=== PATIENT | female | born 1950 | race Caucasian/White ===

== ENCOUNTER → 2016-10-29 | Outpatient (CLI) | payer MEDICARE, MEDICAID ==
[~2016-10-29] MED LIST: ACET-1742; ACET600C5 PO; ACHD5005 PO; ADV1DS; ALBU8.5H2 IH; AML5T PO; AMLO5TAB2 PO; ASCO10006 PO; ASPI-892 PO; AZIT250T81 PO; BUDE6HFA IH; C250T PO; CYCL5TAB11 PO; DOCU100C37 PO; E400C; ENAL20TA PO; ESCI20TA45 PO; ESCT10T PO; FLUT12AE4 IH; FLUT1DIS26; FRS325T; GFN600TCR PO; GLMP4T; GUAI-509 PO; HYDR-2890 PO; HYDR-3820 PO; IBUP-15; INSU100V5 SQ; LAXATIVE; LEVO1CAP3 PO; LSRT50T; MELO7.5T PO; METF500T4 PO; MIRA25TA PO; MNTL10T PO; MONT10TA24 PO; MTF500T PO; NITR-65 PO; OLME20TA21 PO; OLME20TA22 PO; PANT40TA3 PO; PNT40TEC PO; PREG75CA PO; ROFL500T3 PO; SANCTURA; SIMV20TA3 PO; SOLI5TAB4 PO; SPRN25T; STOOL SOFTNER; SULF-222 PO; TIOT18CA; TIOT18CA IH; TIOT18CA2 IH; TYLENOL ARTHRITIS; VESICARE 5MG; [UNRECOGNIZED DRUG - OTHER]; [UNRECOGNIZED DRUG - OTHER]; [UNRECOGNIZED DRUG - REMARK]
--- NOTE | 2016-10-29 09:05 | Diagnostic Imaging Report ---
PA and lateral views of the chest. INDICATION: Chronic cough. FINDINGS: The lungs are hyperinflated. There is tiny pleural effusions. The heart size is moderately enlarged. Pulmonary vascular congestion is seen. No effusion or pneumothorax. The mediastinum and curt appear unremarkable. IMPRESSION: Cardiomegaly with pulmonary vascular congestion, and tiny effusions. COPD. Dictated by: Dictated on workstation # [id number]
== END ==
LOC: RAD 08:29
PROVIDERS: ATTEND Family Medicine
DX: J44.9 Chronic obstructive pulmonary disease, unspecified (principal)
CPT/HCPCS: 71020

== ENCOUNTER → 2016-11-05 | Outpatient (CLI) | payer MEDICARE, MEDICAID ==
[2016-11-05 11:57] LABS: ANION GAP 10 MMOL/L (5-14); BLOOD UREA NITROGEN 17 MG/DL (7-18); BUN/CREATININE RATIO 22; CALCIUM 9.4 MG/DL (8.5-10.1); CARBON DIOXIDE 32 MMOL/L (21-32); CHLORIDE 100 MMOL/L (98-107); CREATININE SERUM 0.77 MG/DL (0.60-1.30); GFR ESTIMATED > 60; GLUCOSE 160 MG/DL (70-105); POTASSIUM 4.3 MMOL/L (3.6-5.0); SODIUM 142 MMOL/L (135-145)
--- NOTE | 2016-11-05 19:22 | Diagnostic Imaging Report ---
EXAMINATION: PA and lateral views of the chest. COMPARISON: 10/29/2016. INDICATION: Dyspnea and cough. FINDINGS: There is moderate cardiomegaly with pulmonary vascular congestion. Tiny pleural effusions are seen. There is background pulmonary hyperinflation suggested compatible with COPD. No pneumothorax. The mediastinum and curt appear unremarkable. IMPRESSION: Cardiomegaly, pulmonary vascular congestion, and tiny bilateral effusions. Dictated by: Dictated on workstation # [id number]
== END ==
LOC: RAD 10:45
PROVIDERS: ATTEND Nurse Practitioner Family
DX: R06.09 Other forms of dyspnea (principal)
CPT/HCPCS: 36415; 71020; 80048; 83880

== ENCOUNTER → 2016-11-16 | Outpatient (CLI) | payer MEDICARE, MEDICAID ==
--- NOTE | 2016-11-18 11:34 | ECHOCARDIOGRAPHY REPORT ---
DATE OF SERVICE: 11/16/2016 PRIMARY CARE PHYSICIAN: Dr. Wyman. ORDERING PHYSICIAN: Alexandra CHAVEZ CLINICAL DIAGNOSIS: Shortness of breath. MEASUREMENTS: 1. Left atrium 3.0. 2. Aortic root 2.9. 3. LV diameter, diastolic 5.3. 4. IVS thickness, diastolic 0.8 5. LVPW thickness, diastolic 1.0. DESCRIPTION: This is a technically difficult study. Global left ventricular systolic function appears normal. Left ventricular ejection fraction is estimated to be approximately 60%. Study is not ideal for wall motion analysis. On the views available, no distinct regional wall motion abnormality is seen. Aortic, mitral and tricuspid valves, to the extent seen, seem to have good leaflet excursion. There appears to be mild to moderate aortic valve sclerosis and calcification. Doppler imaging shows grade I diastolic dysfunction of the left ventricle. The peak pressure gradient across the aortic valve is approximately 28 mmHg with a mean gradient of approximately 15 mmHg and the aortic valve area is calculated to be approximately 2 sq cm. Doppler imaging shows mild aortic regurgitation. There is no evidence of any significant intracardiac shunt on this transthoracic echocardiographic study. There appears to be mild to moderate dilation of the inferior vena cava. Pulmonary artery systolic pressure is estimated at approximately 25 mmHg. CONCLUSIONS: 1. Normal global left ventricular systolic function with an ejection fraction of approximately 60%. 2. Aortic valve sclerosis with mild aortic stenosis and a valve area of approximately 2 sq cm with a mean gradient across the aortic valve of approximately 15 mmHg. 3. Mild diastolic dysfunction of the left ventricle. 4. Pulmonary artery systolic pressure is estimated at approximately 25 mmHg. Job ID: [id number] DocumentID: [id number] Dictated Date: 11/17/2016 16:59:10 Technician Helper Instrument Date: 11/18/2016 10:15:03 Dictated By: LINDA MENDOZA MD, MA, FACP, FACC,
== END ==
LOC: CARD 08:23
PROVIDERS: ATTEND Nurse Practitioner Family
DX: R06.09 Other forms of dyspnea (principal)
CPT/HCPCS: 93306

== ENCOUNTER → 2016-11-27 | Outpatient (CLI) | payer MEDICARE, MEDICAID | LOC: LAB 08:27 | PROVIDERS: ATTEND Internal Medicine Critical Care Medicine | DX: J44.9 Chronic obstructive pulmonary disease, unspecified (principal); J45.998 Other asthma; I50.30 Unspecified diastolic (congestive) heart failure; G47.33 Obstructive sleep apnea (adult) (pediatric) | CPT/HCPCS: 87070; 87077; 87186; 87205 ==

== ENCOUNTER → 2017-03-19 | Outpatient (CLI) | payer MEDICARE, MEDICAID | LOC: LAB 08:21 | PROVIDERS: ATTEND Internal Medicine Critical Care Medicine | DX: J45.998 Other asthma (principal); I50.30 Unspecified diastolic (congestive) heart failure; G47.33 Obstructive sleep apnea (adult) (pediatric); J41.0 Simple chronic bronchitis; J96.10 Chronic respiratory failure, unspecified whether with hypoxia or hypercapnia; R09.82 Postnasal drip; J98.8 Other specified respiratory disorders; R05 Cough | CPT/HCPCS: 87070; 87077; 87186; 87205 ==

== ENCOUNTER → 2017-04-26 | Outpatient (CLI) | payer MEDICARE, MEDICAID | LOC: RAD 13:10 | PROVIDERS: ATTEND Internal Medicine Critical Care Medicine | DX: Z12.2 Encounter for screening for malignant neoplasm of respiratory organs (principal); R91.8 Other nonspecific abnormal finding of lung field; Z87.891 Personal history of nicotine dependence ==

== ENCOUNTER 2017-05-10 09:57 | Emergency (ER) | payer MEDICARE, MEDICAID ==
[~2017-05-10] VITALS: Ht 149.9 cm; Wt 85.3 kg
--- OUTSIDE RECORDS SUMMARY | 2017-05-10 10:03 | XMS REPORT | Clinical Summary ---
Author Author [facility] Organization [facility] Address Unknown Phone Unavailable Care Team Providers Care Online Publisher Name Role Phone PCP Unavailable Source Comments Some departments are not documenting in the electronic medical record. If you do not see the information that you expected, contact Release of Information in the Health Information Management department at [phone] for further assistance in locating additional records.[facility] Allergies Active Allergy Reactions Severity Noted Date Comments Ampicillin HIVES Medium 10/10/2015 Ambika Yeager [facility] 10/10/2015 Penicillins [facility] 10/10/2015 Current Medications Prescription Sig. Disp. Refills Start End Date Status Date other medication Apply 1 Dose to affected Active area twice daily. Clobetasol/nystatin cream Insulin Syringe-Needle Use as directed. Active U-100 1 mL 30 gauge x 5/16 syrg solifenacin(+) (VESICARE) Take 5 mg by mouth daily. Active 5 mg tablet roflumilast (DALIRESP) Take 500 mcg by mouth Active 500 mcg tablet daily. metFORMIN (GLUCOPHAGE) Take 500 mg by mouth Active 500 mg tablet daily. escitalopram oxalate Take 30 mg by mouth Active (LEXAPRO) 20 mg tablet daily. montelukast (SINGULAIR) Take 10 mg by mouth at Active 10 mg tablet bedtime daily. simvastatin (ZOCOR) 20 mg Take 20 mg by mouth at Active tablet bedtime daily. pregabalin (LYRICA) 75 mg Take 75 mg by mouth twice Active capsule daily. albuterol (VENTOLIN HFA, Inhale 2 Puffs by mouth Active PROAIR HFA) 90 every 6 hours as needed mcg/actuation inhaler for Wheezing. tiotropium (SPIRIVA) 18 Inhale 18 mcg by mouth Active mcg capsule for inhaler daily. HYDROcodone/acetaminophen Take 1 Tab by mouth every Active (+) (LORTAB, NORCO) 4 hours 10/325 mg tablet aspirin EC 81 mg tablet Take 81 mg by mouth Active daily. docusate (COLACE) 100 mg Take 100 mg by mouth Active capsule twice daily. ascorbic acid(+) 1,000 mg Take 1 Tab by mouth Active tablet daily. dextromethorphan/guaiFENe Take 1 Tab by mouth daily Active sin(+) (GUAIFENEX DM) as needed. 30/600 mg Tb12 fluticasone-salmeterol(+) Inhale 2 Each by mouth Active (ADVAIR HFA) 115-21 twice daily. mcg/actuation inhaler predniSONE (DELTASONE) 20 Take 2 Tabs by mouth 30 Tab 1 10/16/19 Active mg tablet daily. 16 insulin detemir(+) Administer 10 units every 10 mL 12 10/16/19 Active (LEVEMIR) 100 unit/mL morning and 30 units 16 soln every evening nystatin (MYCOSTATIN) Take 5 mL by mouth four 200 mL 0 10/16/19 Active 100,000 units/mL oral times daily. Indications: 16 suspensionIndications: ORAL CANDIDIASIS ORAL CANDIDIASIS albuterol 0.083% 3 mL every 4 hours as 75 mL 0 11/28/19 Active (PROVENTIL; VENTOLIN) 2.5 needed for Wheezing. 16 mg /3 mL (0.083 %) nebulizer solution ESOMEPRAZOLE MAGNESIUM Take by mouth daily. Active (NEXIUM PO) Active Problems Problem Noted Date Nonischemic cardiomyopathy (HCC) 10/18/2015 Chronic respiratory failure (HCC) 10/14/2015 Dependence on supplemental oxygen 10/14/2015 Obesity (BMI 30-39.9) 10/14/2015 Acute kidney injury (HCC) 10/13/2015 Hyperkalemia 10/13/2015 COPD (chronic obstructive pulmonary disease) (HCC) 10/10/2015 Type II diabetes mellitus (HCC) 10/10/2015 Hypertension, essential 10/10/2015 HLD (hyperlipidemia) 10/10/2015 Acute systolic CHF (congestive heart failure) ([facility]) 10/10/2015 Acute on chronic respiratory failure with hypoxia ([facility]) 10/10/2015 Family History Medical History Relation Name Comments Heart Attack Father Heart Failure Father Hypertension Father Heart Failure Maternal Grandfather Heart Attack Maternal Grandmother Heart Failure Maternal Grandmother Hypertension Maternal Grandmother Arthritis-rheumatoid Sister Relation Name Status Comments Father Maternal Grandfather Maternal Grandmother Sister Social History Tobacco Use Types Packs/Day Years Used Date Former Smoker Cigarettes 2 34 Quit: 10/10/2003 Alcohol Use Drinks/Week oz/Week Comments No 0 Standard 0.0 drinks or equivalent Sex Assigned at Date Recorded Not on file Last Filed Vital Signs Vital Sign Reading Time Taken Blood Pressure 160/74 11/29/2015 10:41 AM CDT Pulse 73 11/29/2015 10:41 AM CDT Temperature 36.3 C (97.4 F) 10/16/2015 11:49 AM CDT Respiratory Rate - - Oxygen Saturation 95% 11/29/2015 10:41 AM CDT Inhaled Oxygen - - Concentration Weight 77.9 kg (171 lb 12.8 oz) 11/29/2015 10:41 AM CDT Height 149.9 cm (4' 11.02") 11/29/2015 10:41 AM CDT Body Mass Index 34.68 11/29/2015 10:41 AM CDT Plan of Treatment Health Maintenance Due Date Last Done Comments HEPATITIS C SCREENING 1950 PHYSICAL (COMPREHENSIVE) 1957 EXAM PERTUSSIS VACCINE 1961 TETANUS VACCINE 1967 DILATED EYE EXAM 1968 FOOT EXAM 1968 MICROALBUMIN 1968 BREAST CANCER SCREENING 1990 COLORECTAL CANCER 2000 SCREENING SHINGLES VACCINE 2010 OSTEOPOROSIS SCREENING 2015 PREVNAR/PNEUMOVAX (#1) 2015 HBA1C 04/12/2016 10/11/2015 INFLUENZA VACCINE 02/23/2017 Results Not on filefrom Last 3 Months
--- NOTE | 2017-05-10 11:02 | Diagnostic Imaging Report ---
3 views of the left wrist. INDICATION: Fall. FINDINGS: There is a deformity in the scaphoid with rotated appearance on the AP view and sclerotic line along the waist seen on the lateral projection. There is also a deformity seen along the distal radius. There is also a deformity in the capitate. These do not have sharp margins and are suggestive of an old injury. No prior studies are available for comparison. No definite acute fracture is seen. No radiopaque foreign body. No subluxation or dislocation. IMPRESSION: Deformities in the distal radius, the scaphoid, and the capitate are likely secondary to old injury. No definite acute fracture is seen. If there is high index of suspicion, a CT scan of the wrist would be of high sensitivity to detect a potentially acute component. Dictated by: Dictated on workstation # [id number]
--- NOTE | 2017-05-10 11:03 | Diagnostic Imaging Report ---
3 views of the right knee. INDICATION: Fall. FINDINGS: No fracture, dislocation, or radiopaque foreign body. No significant arthritic changes seen. No significant effusion is noted. IMPRESSION: Unremarkable exam. Dictated by: Dictated on workstation # [id number]
--- NOTE | 2017-05-10 11:06 | Diagnostic Imaging Report ---
EXAMINATION: Three views of the left foot. INDICATION: Fall. FINDINGS: No acute fracture is seen. There are deformities along the neck of the second, third, and fourth metatarsals with the appearance compatible with old fractures. No subluxation or dislocation. There are calcaneal spurs seen. IMPRESSION: No acute fracture. Dictated by: Dictated on workstation # [id number]
--- NOTE | 2017-05-10 11:19 | Diagnostic Imaging Report ---
PROCEDURE: CT head and CT cervical spine without contrast. TECHNIQUE: Multiple contiguous axial images were obtained through the brain and cervical spine without the use of intravenous contrast. Sagittal and coronal reformations through the cervical spine were then performed. INDICATION: Trauma. FINDINGS: CT head: There is no intracranial hemorrhage, edema, or mass effect. The brain parenchyma and logan-white matter differentiation is preserved. Prominent hypodensities in the white matter however are noted in a somewhat symmetric fashion which are suggestive of chronic microvascular ischemic changes. There is no hydrocephalus. The calvarium, the paranasal sinuses, and orbits appear grossly unremarkable. CT cervical spine: There is minimal anterior translation of C4 over C5. The vertebral body heights are preserved. There is mild disc height loss at C6-C7 level. The alignment of the facet joints and of the lateral masses of C1 and C2 appear satisfactory. There is no widening of the predental space. There are posterior osteophytes seen at C5-C6 and C6-C7 levels. No fracture seen. Sections of the lung apices demonstrate emphysema. IMPRESSION: CT head: No acute process. CT cervical spine: 1. Disc degenerative changes with posterior osteophytes at C5-C6 and C6-C7. 2. Minimal anterior translation of C4 over C5 is likely degenerative related. No fracture seen. 3. Emphysema. Dictated by: Dictated on workstation # [id number]
--- NOTE | 2017-05-10 12:14 | Diagnostic Imaging Report ---
EXAMINATION: Three views of the right foot. INDICATION: Fall. FINDINGS: No fracture, dislocation, or radiopaque foreign body. The joint alignment is satisfactory. Calcaneal spurs are seen. IMPRESSION: No fracture is seen. Dictated by: Dictated on workstation # [id number]
--- NOTE | 2017-05-10 13:01 | Diagnostic Imaging Report ---
PROCEDURE: CT left upper extremity without contrast. TECHNIQUE: Multiple contiguous axial images were obtained through the left upper extremity without the use of intravenous contrast. INDICATION: Left wrist pain after injury. FINDINGS: There are intraosseous cysts seen within the carpal bones including the proximal scaphoid and slightly rotated appearance of the scaphoid dorsally. No significant subluxation or dislocation is seen otherwise. There is no acute fracture. The rotated appearance and slight bony irregularity in the carpal bones could relate to old injury. No significant soft tissue hematoma is identified. Minimal degenerative changes are seen of the wrist and intercarpal joints. IMPRESSION: No acute fracture. Dictated by: Dictated on workstation # [id number]
--- NOTE | 2017-05-10 14:23 | ED Fall/Injury ---
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 C/O PAIN TO R KNEE,L WRIST.AND FOOT Source: patient, EMS Exam Limitations: no limitations Allergies and Home Medications Allergies Coded Allergies: penicillin V (Verified Allergy, Mild, 01/10/08) ampicillin (Unverified Allergy, Unknown, 08/13/14) chlorpheniramine (Unverified Allergy, Unknown, 08/13/14) oxymetazoline (Unverified Allergy, Unknown, 08/13/14) pheniramine (Unverified Allergy, Unknown, 08/13/14) phenylephrine (Unverified Allergy, Unknown, 08/13/14) pseudoephedrine (Unverified Allergy, Unknown, 08/13/14) Home Medications Acetylcysteine 600 Mg Capsule, 600 MG PO EVERY EVENING, (Reported) Albuterol 8.5 Gm Hfa.aer.ad, 2 PUFF IH Q6H PRN for SHORTNESS OF BREATH, ( Reported) Amlodipine Besylate 5 Mg Tablet, 5 MG PO EVERY EVENING, (Reported) Ascorbic Acid 1,000 Mg Tablet, 1,000 MG PO DAILY @ 1200, (Reported) Aspirin 81 Mg Tablet.dr, 81 MG PO DAILY, (Reported) Docusate Sodium 100 Mg Capsule, 100 MG PO HS, (Reported) Escitalopram Oxalate 20 Mg Tablet, 20 MG PO DAILY, (Reported) Fluticasone/Salmeterol 12 Gm Hfa.aer.ad, 2 PUFF IH BID, (Reported) Guaifenesin/Dextromethorphan 1 Each Tablet, 1 TAB PO DAILY PRN for CONGESTION, ( Reported) Hydrocodone/Acetaminophen 1 Each Tablet, 1 TAB PO BID, (Reported) TAKES 1 TAB AT LUNCH AND 1 TAB AT BEDTIME Insulin Determir 1,000 Units/10 Ml Soln, 48 UNITS SQ DAILY, (Reported) Insulin Determir 1,000 Units/10 Ml Soln, 30 UNITS SQ HS, (Reported) Levomefolate/B6/B12/Algal Oil 1 Each Capsule, 1 CAP PO EVERY EVENING, (Reported) Metformin HCl 500 Mg Tablet, 500 MG PO DAILY, (Reported) Mirabegron 25 Mg Tab.er.24h, 25 MG PO EVERY EVENING, (Reported) Montelukast Sodium 10 Mg Tablet, 10 MG PO EVERY EVENING, (Reported) Nitrofurantoin Monohyd/M-Cryst 100 Mg Capsule, 1 TAB PO BID, #14 Prescribed by: IJEOMA AGUILAR on 11/12/15 1238 Olmesartan Medoxomil 20 Mg Tablet, 20 MG PO HS, (Reported) Pantoprazole Sodium 40 Mg Tablet.dr, 40 MG PO EVERY EVENING, (Reported) Pregabalin 75 Mg Capsule, 75 MG PO BID, (Reported) Roflumilast 500 Mcg Tablet, 500 MCG PO EVERY EVENING, (Reported) Simvastatin 20 Mg Tablet, 20 MG PO HS, (Reported) Solifenacin Succinate 5 Mg Tablet, 5 MG PO DAILY, (Reported) Sulfamethoxazole/Trimethoprim 1 Each Tablet, 1 TAB PO BID, (Reported) FILLED 10/03/15 #14 FOR A 7 DAY THERAPY Tiotropium [place] 1 Inh Aerp, 2 PUFF IH DAILY, (Reported) Past Ladlhik-Xylfck-Gvclcz Hx Patient Social History Alcohol Use: Denies Use Recreational Drug Use: No Smoking Status: Never a Smoker Recent Foreign Travel: No Contact w/Someone Who Travel: No Recent Infectious Disease Expo: No Recent Hopitalizations: Yes Immunizations Up To Date Tetanus Booster (TDap): Less than 5yrs Date of Pneumonia Vaccine: Apr 25, 2014 Date of Influenza Vaccine: Mar 26, 2015 Seasonal Allergies Seasonal Allergies: No Surgeries History of Surgeries: Yes (BACK SURG) Surgeries: Adenoidectomy, Appendectomy, Section, Hysterectomy, Tonsillectomy Respiratory History of Respiratory Disorde: Yes Respiratory Disorders: COPD Currently Using CPAP: Yes Cardiovascular History of Cardiac Disorders: Yes Cardiac Disorders: High Cholesterol, Hypertension Neurological History of Neurological Disord: Yes Neurological Disorders: Neuropathy Reproductive System Hx Reproductive Disorders: No COMMUNICATIONS SENIOR ASSOCIATE History: Hysterectomy Gastrointestinal History of Gastrointestinal Di: No Gastrointestinal Disorders: Gastroesophageal Reflux Musculoskeletal History of Musculoskeletal Dis: Yes Musculoskeletal Disorders: Arthritis, Chronic Back Pain Endocrine History of Endocrine Disorders: Yes Endocrine Disorders: Diabetes, Non-Insulin dep Cancer History of Cancer: No Psychosocial History of Psychiatric Problem: No Integumentary History of Skin or Integumenta: No Blood Transfusions History of Blood Disorders: Yes Physical Exam Vital Signs Vital Sign - Last 12Hours 05/10/17 09:57 Temp 98.9 Pulse 77 Resp 18 B/P (MAP) 153/77 Pulse Ox 95 O2 Delivery Nasal Cannula Capillary Refill : Less Than 3 Seconds Progress/Results/Core Measures Results/Orders My Orders Orders - IJEOMA VÁZQUEZ MD Wrist, Left, 3 Views Or More (05/10/17 10:08) Knee, Right, 3 Views (05/10/17 10:08) Foot, Left, 3 Views (05/10/17 10:08) Ct Head/Cervical Spine Wo (05/10/17 10:08) Ct Extremity Upper Left Wo (05/10/17 11:44) Foot, Right, 3 View (05/10/17 11:44) Dipht,Pertuss(Acell),Tet Adult (Boostrix (05/10/17 14:30) Hydrocodone/Apap 5/325 Tablet (Lortab 5 (05/10/17 14:30) Vital Signs/I&O Vital Sign - Last 12Hours 05/10/17 09:57 Temp 98.9 Pulse 77 Resp 18 B/P (MAP) 153/77 Pulse Ox 95 O2 Delivery Nasal Cannula Blood Pressure Mean: 102 Progress Note : Progress Note Patient was fitted with a universal wrist splint. A tetanus booster was administered and hydrocodone was given for pain. Wounds were cleaned and dressed by nursing staff. Departure Impression Impression: Primary Impression: Fall on same level from tripping as cause of accidental injury Additional Impressions: Left wrist pain Contusion of right knee Qualified Codes: S80.01XA - Contusion of right knee, initial encounter Contusion of right foot Qualified Codes: S90.31XA - Contusion of right foot, initial encounter Minor head injury Qualified Codes: S00.90XA - Unspecified superficial injury of unspecified part of head, initial encounter Multiple abrasions Disposition: 01 HOME, SELF-CARE Condition: Improved Departure-Patient Inst. Decision time for Depature: 14:22 Referrals: ZAMZAM HOBSON MD (PCP/Family) Primary Care Physician Patient Instructions: Contusion (DC) Add. Discharge Instructions: Monitor your wounds for signs of infection such as increasing redness, and mild puslike drainage, or fever. Use your pain medications as previously prescribed. Return to the emergency room or your primary care provider if you have any other problems or concerns. Use your wrist splint as needed for comfort and support. All discharge instructions reviewed with patient and/or family. Voiced understanding. IJEMOA VÁZQUEZ MD May 10, 2017 14:23
[2017-05-10] MEDS ORDERED: HYDROcodone/APAP 5 MG/325 MG (LORTAB) TAB PO ONE (14:30)
[2017-05-10] MEDS ORDERED: TETANUS,DIPTH,PERTUSS P/F (BOOSTRIX) 0.5 ML VIAL IM ONE (14:30)
[2017-05-10 14:37] VITALS: BP 110/94
== END 2017-05-10 14:37 | disposition home or self-care (01) ==
LOC: EDUNIT# 09:57 → ER 09:59
DX: S09.90XA Unspecified injury of head, initial encounter (principal); S90.31XA Contusion of right foot, initial encounter; S80.01XA Contusion of right knee, initial encounter; M25.532 Pain in left wrist; E11.40 Type 2 diabetes mellitus with diabetic neuropathy, unspecified; K21.9 Gastro-esophageal reflux disease without esophagitis; E78.00 Pure hypercholesterolemia, unspecified; I10 Essential (primary) hypertension; J44.9 Chronic obstructive pulmonary disease, unspecified; Z90.49 Acquired absence of other specified parts of digestive tract; Z90.89 Acquired absence of other organs; Z90.710 Acquired absence of both cervix and uterus; Z79.82 Long term (current) use of aspirin; Z79.4 Long term (current) use of insulin; Z23 Encounter for immunization; W01.0XXA Fall on same level from slipping, tripping and stumbling without subsequent striking against object, initial encounter
CPT/HCPCS: 70450; 72125; 73110; 73200; 73562; 73630; 90715; 99283

== ENCOUNTER → 2017-10-13 | Outpatient (CLI) | payer MEDICARE, MEDICAID ==
[~2017-10-13] MED LIST changes: -OLME20TA22 PO
[2017-10-13 08:48] LABS: BASOPHILS # (AUTO) 0.1 10^3/uL (0.0-0.1); BASOPHILS % (AUTO) 1 % (0-10); EOSINOPHILS # (AUTO) 0.3 10^3/uL (0.0-0.3); EOSINOPHILS % (AUTO) 4 % (0-10); HEMATOCRIT 38 % (35-52); HEMOGLOBIN 11.8 G/DL (11.5-16.0); LYMPHOCYTES # (AUTO) 1.6 X 10^3 (1.0-4.0); LYMPHOCYTES % (AUTO) 25 % (12-44); MEAN CORPUSCULAR HEMOGLOBIN 28 PG (25-34); MEAN CORPUSCULAR HGB CONC 31 G/DL (32-36); MEAN CORPUSCULAR VOLUME 90 FL (80-99); MEAN PLATELET VOLUME 9.8 FL (7.4-10.4); MONOCYTES # (AUTO) 0.7 X 10^3 (0.0-1.0); MONOCYTES % (AUTO) 11 % (0-12); NEUTROPHILS # (AUTO) 3.8 X 10^3 (1.8-7.8); NEUTROPHILS % (AUTO) 59 % (42-75); PLATELET COUNT 198 10^3/uL (130-400); RED BLOOD COUNT 4.25 10^6/uL (4.35-5.85); RED CELL DISTRIBUTION WIDTH 14.4 % (10.0-14.5); WHITE BLOOD COUNT 6.4 10^3/uL (4.3-11.0)
[2017-10-13 09:15] LABS: ALANINE AMINOTRANSFERASE 22 U/L (0-55); ALBUMIN 4.4 GM/DL (3.2-4.5); ALKALINE PHOSPHATASE 68 U/L (40-136); BILIRUBIN,TOTAL 0.4 MG/DL (0.1-1.0); BUN/CREATININE RATIO 19; CALCIUM 9.4 MG/DL (8.5-10.1); CARBON DIOXIDE 30 MMOL/L (21-32); CHLORIDE 102 MMOL/L (98-107); CHOLESTEROL 138 MG/DL (< 200); CREATININE SERUM 0.85 MG/DL (0.60-1.30); GFR ESTIMATED > 60; GLUCOSE 144 MG/DL (70-105); HDL CHOLESTEROL 60 MG/DL (40-60); MAGNESIUM 2.3 MG/DL (1.8-2.4); POTASSIUM 5.3 MMOL/L (3.6-5.0); SODIUM 139 MMOL/L (135-145); TRIGLYCERIDES 66 MG/DL (<150); VLDL CHOLESTEROL 13 MG/DL (5-40)
[2017-10-13 09:27] LABS: ERYTHROCYTE SEDIMENTATION RATE 6 MM/HR (0-30)
== END ==
LOC: LAB 08:24
PROVIDERS: ATTEND Internal Medicine Cardiovascular Disease
DX: I27.20 Pulmonary hypertension, unspecified (principal); E66.9 Obesity, unspecified; E78.5 Hyperlipidemia, unspecified; I10 Essential (primary) hypertension; J96.90 Respiratory failure, unspecified, unspecified whether with hypoxia or hypercapnia; Z86.79 Personal history of other diseases of the circulatory system
CPT/HCPCS: 36415; 80053; 80061; 83735; 84443; 85025; 85652

== ENCOUNTER → 2017-10-18 | Outpatient (CLI) | payer MEDICARE, MEDICAID ==
[2017-10-18 08:59] LABS: BASOPHILS # (AUTO) 0.1 10^3/uL (0.0-0.1); BASOPHILS % (AUTO) 1 % (0-10); EOSINOPHILS # (AUTO) 0.2 10^3/uL (0.0-0.3); EOSINOPHILS % (AUTO) 3 % (0-10); HEMATOCRIT 37 % (35-52); HEMOGLOBIN 11.8 G/DL (11.5-16.0); LYMPHOCYTES # (AUTO) 1.5 X 10^3 (1.0-4.0); LYMPHOCYTES % (AUTO) 23 % (12-44); MEAN CORPUSCULAR HEMOGLOBIN 28 PG (25-34); MEAN CORPUSCULAR HGB CONC 32 G/DL (32-36); MEAN CORPUSCULAR VOLUME 89 FL (80-99); MEAN PLATELET VOLUME 9.4 FL (7.4-10.4); MONOCYTES # (AUTO) 0.7 X 10^3 (0.0-1.0); MONOCYTES % (AUTO) 10 % (0-12); NEUTROPHILS # (AUTO) 4.2 X 10^3 (1.8-7.8); NEUTROPHILS % (AUTO) 63 % (42-75); PLATELET COUNT 195 10^3/uL (130-400); RED BLOOD COUNT 4.17 10^6/uL (4.35-5.85); RED CELL DISTRIBUTION WIDTH 13.7 % (10.0-14.5); WHITE BLOOD COUNT 6.6 10^3/uL (4.3-11.0)
[2017-10-18 09:25] LABS: ALANINE AMINOTRANSFERASE 19 U/L (0-55); ALBUMIN 4.3 GM/DL (3.2-4.5); ALKALINE PHOSPHATASE 74 U/L (40-136); BILIRUBIN,TOTAL 0.4 MG/DL (0.1-1.0); BUN/CREATININE RATIO 21; CALCIUM 9.4 MG/DL (8.5-10.1); CARBON DIOXIDE 33 MMOL/L (21-32); CHLORIDE 101 MMOL/L (98-107); CREATININE SERUM 0.82 MG/DL (0.60-1.30); GFR ESTIMATED > 60; GLUCOSE 224 MG/DL (70-105); MAGNESIUM 2.2 MG/DL (1.8-2.4); POTASSIUM 4.7 MMOL/L (3.6-5.0); SODIUM 139 MMOL/L (135-145); TOTAL PROTEIN 6.8 GM/DL (6.4-8.2)
[2017-10-18 10:12] LABS: ERYTHROCYTE SEDIMENTATION RATE 5 MM/HR (0-30)
== END ==
LOC: LAB 08:27
PROVIDERS: ATTEND Internal Medicine Cardiovascular Disease
DX: R06.02 Shortness of breath (principal); I27.20 Pulmonary hypertension, unspecified; E66.9 Obesity, unspecified; E78.5 Hyperlipidemia, unspecified; I10 Essential (primary) hypertension; J96.90 Respiratory failure, unspecified, unspecified whether with hypoxia or hypercapnia; E87.5 Hyperkalemia; Z86.79 Personal history of other diseases of the circulatory system
CPT/HCPCS: 36415; 80053; 83735; 84443; 85025; 85652

== ENCOUNTER → 2017-10-19 | Outpatient (CLI) | payer MEDICARE, MEDICAID | LOC: CARD 10:13 | PROVIDERS: ATTEND Internal Medicine Cardiovascular Disease | DX: R06.02 Shortness of breath (principal); I27.0 Primary pulmonary hypertension; E66.8 Other obesity; E78.5 Hyperlipidemia, unspecified; I10 Essential (primary) hypertension; J96.90 Respiratory failure, unspecified, unspecified whether with hypoxia or hypercapnia; Z86.79 Personal history of other diseases of the circulatory system; I08.0 Rheumatic disorders of both mitral and aortic valves | CPT/HCPCS: 93306 ==

== ENCOUNTER → 2017-12-01 | Outpatient (CLI) | payer MEDICARE, MEDICAID ==
[~2017-12-01] MED LIST changes: -METF500T4 PO; +METF500T5 PO
[2017-12-01 08:56] LABS: BASOPHILS # (AUTO) 0.1 10^3/uL (0.0-0.1); BASOPHILS % (AUTO) 2 % (0-10); EOSINOPHILS # (AUTO) 0.3 10^3/uL (0.0-0.3); EOSINOPHILS % (AUTO) 6 % (0-10); HEMATOCRIT 36 % (35-52); HEMOGLOBIN 11.2 G/DL (11.5-16.0); LYMPHOCYTES # (AUTO) 1.3 X 10^3 (1.0-4.0); LYMPHOCYTES % (AUTO) 24 % (12-44); MEAN CORPUSCULAR HEMOGLOBIN 28 PG (25-34); MEAN CORPUSCULAR HGB CONC 31 G/DL (32-36); MEAN CORPUSCULAR VOLUME 90 FL (80-99); MEAN PLATELET VOLUME 9.5 FL (7.4-10.4); MONOCYTES # (AUTO) 0.7 X 10^3 (0.0-1.0); MONOCYTES % (AUTO) 14 % (0-12); NEUTROPHILS # (AUTO) 3.1 X 10^3 (1.8-7.8); NEUTROPHILS % (AUTO) 56 % (42-75); PLATELET COUNT 185 10^3/uL (130-400); RED BLOOD COUNT 3.99 10^6/uL (4.35-5.85); RED CELL DISTRIBUTION WIDTH 13.1 % (10.0-14.5); WHITE BLOOD COUNT 5.5 10^3/uL (4.3-11.0)
== END ==
LOC: LAB 08:30
PROVIDERS: ATTEND Podiatrist Foot & Ankle Surgery
DX: E11.42 Type 2 diabetes mellitus with diabetic polyneuropathy (principal)
CPT/HCPCS: 36415; 83036; 85025

== ENCOUNTER 2018-03-24 06:01 | Emergency (ER) | payer MEDICARE, MEDICAID ==
[~2018-03-24] VITALS: Ht 147.3 cm; Wt 86.2 kg
[~2018-03-24 06:01] MED LIST changes: -AMLO5TAB2 PO; +AMLO5TAB7 PO; +METF-397 PO; -METF500T5 PO
[2018-03-24 06:22] LABS: BASOPHILS # (AUTO) 0.1 10^3/uL (0.0-0.1); BASOPHILS % (AUTO) 1 % (0-10); EOSINOPHILS # (AUTO) 0.3 10^3/uL (0.0-0.3); EOSINOPHILS % (AUTO) 5 % (0-10); HEMATOCRIT 37 % (35-52); HEMOGLOBIN 11.9 G/DL (11.5-16.0); LYMPHOCYTES # (AUTO) 1.7 X 10^3 (1.0-4.0); LYMPHOCYTES % (AUTO) 27 % (12-44); MEAN CORPUSCULAR HEMOGLOBIN 29 PG (25-34); MEAN CORPUSCULAR HGB CONC 32 G/DL (32-36); MEAN CORPUSCULAR VOLUME 89 FL (80-99); MEAN PLATELET VOLUME 10.1 FL (7.4-10.4); MONOCYTES # (AUTO) 0.7 X 10^3 (0.0-1.0); MONOCYTES % (AUTO) 11 % (0-12); NEUTROPHILS # (AUTO) 3.5 X 10^3 (1.8-7.8); NEUTROPHILS % (AUTO) 55 % (42-75); PLATELET COUNT 183 10^3/uL (130-400); RED BLOOD COUNT 4.12 10^6/uL (4.35-5.85); RED CELL DISTRIBUTION WIDTH 12.5 % (10.0-14.5); WHITE BLOOD COUNT 6.2 10^3/uL (4.3-11.0)
[2018-03-24] MEDS: NS IV 500 ML 500 ML IV ONE (06:23)
[2018-03-24] MEDS: RT-ALBUTEROL/IPRATROPIUM 3 ML (DUONEB) VIAL INH ONE (06:28)
--- NOTE | 2018-03-24 06:28 | ED Fall/Injury ---
General Chief Complaint: Trauma-Non Activation Stated Complaint: FALL Nursing Triage Note: PT BROUGHT IN BY EMS WITH COMPLAINT OF FALL. PT STATES SHE ROLLED OUT OF BED THIS MORING. PT STATES SHE HIT HER FACE ON HER NIGHT STAND. PT HAS SKIN TEAR ON LEFT UPPER ARM. DENIES LOC. Source: patient, EMS, old records Exam Limitations: no limitations History of Present Illness Date Seen by Provider: Mar 24, 2018 Time Seen by Provider: 06:02 Initial Comments This 67-year-old woman arrives to the emergency room via EMS after falling out of her bed this morning and striking her face, presumably on the nightstand. She has a significant contusion with ecchymosis and swelling in the left periorbital region. She has difficulty seeing due to the swelling but vision is grossly intact. She denies any loss of consciousness. She does not feel her blood sugar was low at that time. Her blood sugar on arrival was 220. She complains of pain in the face, at the site of the skin tear on the left elbow, and over the left hip. She denies any neck pain. She has COPD and uses oxygen continuously, 4 L during the day and 5 L at night. She also sleeps with CPAP. She is audibly wheezing at this time. She reports blood sugars have been high recently. Allergies and Home Medications Allergies Coded Allergies: penicillin V (Verified Allergy, Mild, 01/10/08) ampicillin (Unverified Allergy, Unknown, 08/13/14) chlorpheniramine (Unverified Allergy, Unknown, 08/13/14) oxymetazoline (Unverified Allergy, Unknown, 08/13/14) pheniramine (Unverified Allergy, Unknown, 08/13/14) phenylephrine (Unverified Allergy, Unknown, 08/13/14) pseudoephedrine (Unverified Allergy, Unknown, 08/13/14) Home Medications Acetylcysteine 600 Mg Capsule, 600 MG PO EVERY EVENING, (Reported) Albuterol 8.5 Gm Hfa.aer.ad, 2 PUFF IH Q6H PRN for SHORTNESS OF BREATH, ( Reported) Amlodipine Besylate 5 Mg Tablet, 5 MG PO EVERY EVENING, (Reported) Ascorbic Acid 1,000 Mg Tablet, 1,000 MG PO DAILY @ 1200, (Reported) Aspirin 81 Mg Tablet.dr, 81 MG PO DAILY, (Reported) Docusate Sodium 100 Mg Capsule, 100 MG PO HS, (Reported) Escitalopram Oxalate 20 Mg Tablet, 20 MG PO DAILY, (Reported) Fluticasone/Salmeterol 12 Gm Hfa.aer.ad, 2 PUFF IH BID, (Reported) Guaifenesin/Dextromethorphan 1 Each Tablet, 1 TAB PO DAILY PRN for CONGESTION, ( Reported) Hydrocodone/Acetaminophen 1 Each Tablet, 1 TAB PO BID, (Reported) TAKES 1 TAB AT LUNCH AND 1 TAB AT BEDTIME Insulin Determir 1,000 Units/10 Ml Soln, 48 UNITS SQ DAILY, (Reported) Insulin Determir 1,000 Units/10 Ml Soln, 30 UNITS SQ HS, (Reported) Levomefolate/B6/B12/Algal Oil 1 Each Capsule, 1 CAP PO EVERY EVENING, (Reported) Metformin HCl 500 Mg Tablet, 500 MG PO DAILY, (Reported) Mirabegron 25 Mg Tab.er.24h, 25 MG PO EVERY EVENING, (Reported) Montelukast Sodium 10 Mg Tablet, 10 MG PO EVERY EVENING, (Reported) Nitrofurantoin Monohyd/M-Cryst 100 Mg Capsule, 1 TAB PO BID Prescribed by: IJEOMA AGUILAR on 11/12/15 1238 Olmesartan Medoxomil 20 Mg Tablet, 20 MG PO HS, (Reported) Pantoprazole Sodium 40 Mg Tablet.dr, 40 MG PO EVERY EVENING, (Reported) Pregabalin 75 Mg Capsule, 75 MG PO BID, (Reported) Roflumilast 500 Mcg Tablet, 500 MCG PO EVERY EVENING, (Reported) Simvastatin 20 Mg Tablet, 20 MG PO HS, (Reported) Solifenacin Succinate 5 Mg Tablet, 5 MG PO DAILY, (Reported) Sulfamethoxazole/Trimethoprim 1 Each Tablet, 1 TAB PO BID, (Reported) FILLED 10/03/15 #14 FOR A 7 DAY THERAPY Tiotropium [place] 1 Inh Aerp, 2 PUFF IH DAILY, (Reported) Patient Home Medication List Home Medication List Reviewed: Yes Review of Systems Review of Systems Constitutional: no symptoms reported Eyes: See HPI Ears, Nose, Mouth, Throat: no symptoms reported Respiratory: see HPI Cardiovascular: no symptoms reported; No chest pain Gastrointestinal: no symptoms reported Genitourinary: no symptoms reported : No Musculoskeletal: see HPI Skin: see HPI Psychiatric/Neurological: No Symptoms Reported Past Hhmqhwa-Axwlrx-Vhobdx Hx Patient Social History Alcohol Use: Denies Use Recreational Drug Use: No Smoking Status: Former Smoker Recent Foreign Travel: No Contact w/Someone Who Travel: No Recent Infectious Disease Expo: No Recent Hopitalizations: Yes Immunizations Up To Date Tetanus Booster (TDap): Less than 5yrs Date of Pneumonia Vaccine: Apr 25, 2014 Date of Influenza Vaccine: Mar 26, 2015 Seasonal Allergies Seasonal Allergies: No Past Medical History Surgeries: Yes (BACK SURG) Adenoidectomy, Appendectomy, Section, Hysterectomy, Tonsillectomy Respiratory: Yes (chronic hypoxia) Sleep Apnea, COPD Currently Using CPAP: Yes Cardiac: Yes High Cholesterol, Hypertension Neurological: Yes Neuropathy 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 0.0oz. 86.133740nx; 37.97 BMI Method:Stated General Appearance: WD/WN, no apparent distress HEENT: PERRL/EOMI, other (oropharynx dry, significant ecchymosis and edema in the left periorbital region involving the eyelids as well) Neck: non-tender, normal inspection Cardiovascular: regular rate, rhythm, no edema, no murmur Respiratory: lungs clear, normal breath sounds, no respiratory distress, no accessory muscle use Gastrointestinal: normal bowel sounds, non tender, soft Extremities: no pedal edema, pelvis stable, other (mild tenderness over the left hip) Neurologic/Psychiatric: field organizer II-XII nml as tested, no motor/sensory deficits, alert, normal mood/affect, oriented x 3 Skin: warm/dry, ecchymosis (left periorbital region), other (large skin tear on the left elbow, small abrasion on the left noel) [place] Coma Score Best Eye Response: (4) Open Spontaneously Best Verbal Response: (5) Oriented Best Motor Response: (6) Obeys Commands [place] Total: 15 Progress/Results/Core Measures Results/Orders Lab Results Laboratory Tests Test 03/24/18 06:11 03/24/18 06:15 03/24/18 08:03 Range/Units Glucometer 220 H 70-110 MG/DL White Blood Count 6.2 4.3-11.0 10^3/uL Red Blood Count 4.12 L 4.35-5.85 10^6/uL Hemoglobin 11.9 11.5-16.0 G/DL Hematocrit 37 35-52 % Mean Corpuscular Volume 89 80-99 FL Mean Corpuscular Hemoglobin 29 25-34 PG Mean Corpuscular Hemoglobin Concent 32 32-36 G/DL Red Cell Distribution Width 12.5 10.0-14.5 % Platelet Count 183 130-400 10^3/uL Mean Platelet Volume 10.1 7.4-10.4 FL Neutrophils (%) (Auto) 55 42-75 % Lymphocytes (%) (Auto) 27 12-44 % Monocytes (%) (Auto) 11 0-12 % Eosinophils (%) (Auto) 5 0-10 % Basophils (%) (Auto) 1 0-10 % Neutrophils # (Auto) 3.5 1.8-7.8 X 10^3 Lymphocytes # (Auto) 1.7 1.0-4.0 X 10^3 Monocytes # (Auto) 0.7 0.0-1.0 X 10^3 Eosinophils # (Auto) 0.3 0.0-0.3 10^3/uL Basophils # (Auto) 0.1 0.0-0.1 10^3/uL Sodium Level 141 135-145 MMOL/L Potassium Level 4.0 3.6-5.0 MMOL/L Chloride Level 101 98-107 MMOL/L Carbon Dioxide Level 26 21-32 MMOL/L Anion Gap 14 5-14 MMOL/L Blood Urea Nitrogen 23 H 7-18 MG/DL Creatinine 0.88 0.60-1.30 MG/DL Estimat Glomerular Filtration Rate > 60 BUN/Creatinine Ratio 26 Glucose Level 209 H 70-105 MG/DL Calcium Level 9.6 8.5-10.1 MG/DL Corrected Calcium 9.4 8.5-10.1 MG/DL Magnesium Level 2.2 1.8-2.4 MG/DL Total Bilirubin 0.4 0.1-1.0 MG/DL Aspartate Amino Transf (AST/SGOT) 19 5-34 U/L Alanine Aminotransferase (ALT/SGPT) 18 0-55 U/L Alkaline Phosphatase 72 40-136 U/L Troponin I < 0.30 <0.30 NG/ML Total Protein 7.2 6.4-8.2 GM/DL Albumin 4.2 3.2-4.5 GM/DL Urine Color YELLOW Urine Clarity CLEAR Urine pH 5 5-9 Urine Specific [place] 1.025 H 1.016-1.022 Urine Protein 2+ H NEGATIVE Urine Glucose (UA) NEGATIVE NEGATIVE Urine Ketones NEGATIVE NEGATIVE Urine Nitrite NEGATIVE NEGATIVE Urine Bilirubin NEGATIVE NEGATIVE Urine Urobilinogen NORMAL NORMAL MG/DL Urine Leukocyte Esterase 1+ H NEGATIVE Urine RBC (Auto) 1+ H NEGATIVE Urine RBC NONE /HPF Urine WBC 0-2 /HPF Urine Squamous Epithelial Cells RARE /HPF Urine Crystals NONE /LPF Urine Bacteria NEGATIVE /HPF Urine Casts NONE /LPF Urine Mucus NEGATIVE /LPF Urine Culture Indicated NO My Orders Orders - IJEOMA VÁZQUEZ MD Cbc With Automated Diff (03/24/18 06:13) Comprehensive Metabolic Panel (03/24/18 06:13) Magnesium (03/24/18 06:13) Troponin I (03/24/18 06:13) Ua Culture If Indicated (03/24/18 06:13) Accucheck Stat ONCE (03/24/18 06:13) Saline Lock/Iv-Start (03/24/18 06:13) Ekg Tracing (03/24/18 06:13) Catheter(Urinary) Insert & Ass 03,15 (03/24/18 06:13) Monitor-Rhythm Ecg Trace Only (03/24/18 06:13) Chest 1 View, Ap/Pa Only (03/24/18 06:13) Pelvis With Left Hip 2-3 Views (03/24/18 06:13) Albuterol/Ipra Inhalation Soln (Duoneb I (03/24/18 06:15) Svn Small Volume Nebulizer (03/24/18 06:13) Ct Head/Face/Cervical Wo (03/24/18 06:13) Saline Lock/Iv-Start (03/24/18 06:13) Ns Iv 500 Ml (Sodium Chloride 0.9%) (03/24/18 06:13) Elbow, Left, 3 Views (03/24/18 06:29) Dipht,Pertuss(Acell),Tet Adult (Boostrix (03/24/18 06:45) Medications Given in ED Vital Signs/I&O 03/24/18 03/24/18 03/24/18 03/24/18 06:02 06:29 08:07 10:35 Temp 99.9 97.6 Pulse 72 69 66 Resp 20 14 14 B/P (MAP) 143/88 (106) 137/88 (104) 120/80 Pulse Ox 97 97 95 97 O2 Delivery Nasal Cannula Nasal Cannula Nasal Cannula Nasal Cannula O2 Flow Rate 4.00 4.00 4.00 4.00 Blood Pressure Mean: 106 Progress Progress Note #1: Time: 06:33 Progress Note Patient seen and examined. Imaging ordered. Patient appears dry. A 500 mL normal saline bolus has been ordered. A DuoNeb treatment was ordered for the audible wheezing to be given prior to imaging. Labs and UA are pending. Progress Note #2: Progress Note Labs were fairly unremarkable. Patient is doing relatively well. Wheezing improved. Skin tear on the left elbow was irrigated with normal saline and stretched out over the wound. It was tacked down with Steri-Strips. Nonstick dressing was then applied. Patient was dismissed home in stable condition. Boostrix tetanus booster was administered. Initial ECG Impression Date: Mar 24, 2018 Initial ECG Impression Time: 06:24 Initial ECG Rate: 71 Initial ECG Rhythm: Normal Sinus Initial ECG Intervals: Normal Initial ECG Impression: Normal Comment Normal sinus rhythm with no ST elevation or depression. No significant abnormal intervals or axis deviation. Diagnostic Imaging Diagonstic Imaging: Xray Plain Films/CT/US/NM/MRI: pelvis, hip Comments Pelvis and left hip x-ray viewed by me and report reviewed. See report below: NAME: [facility] REC#: [id number] PT STATUS: REG ER : 1950 PHYSICIAN: JIEOMA VÁZQUEZ MD ADMIT DATE: 03/24/18/ER Draft Date of Exam:03/24/18 PELVIS WITH LEFT HIP 2-3 VIEWS INDICATION: Fall with pelvic pain AP pelvis and AP and oblique views of the left hip are obtained. No fracture or acute bony abnormality is seen. Hip joint spaces appear symmetric. IMPRESSION: Negative pelvis and left hip. Dictated on workstation # [id number] Dict: 03/24/18718 Trans: 03/24/18720 [facility] [id number] Interpreted by: JAGUAR OLEARY MD Diagonstic Imaging: Xray Plain Films/CT/US/NM/MRI: chest Comments Chest x-ray viewed by me and report reviewed. See report below: NAME: [facility] REC#: [id number] PT STATUS: REG ER : 1950 PHYSICIAN: IJEOMA VÁZQUEZ MD ADMIT DATE: 03/24/18/ER Draft Date of Exam:03/24/18 CHEST 1 VIEW, AP/PA ONLY INDICATION: Fall with chest discomfort. Frontal chest obtained at 7:24 a.m. is compared with 11/05/2016. FINDINGS: There is marked cardiomegaly. There is chronic central vascular prominence which appears similar to the prior study. There is no new infiltrate or pneumothorax or pleural fluid. IMPRESSION: Prominent cardiomegaly and chronic central vascular prominence without change from 11/05/16. No pneumothorax or pleural fluid or acute finding. Dictated on workstation # [id number] Dict: 03/24/18720 Trans: 03/24/18[facility] [id number] Interpreted by: JAGUAR OLEARY MD Diagonstic Imaging: Xray Plain Films/CT/US/NM/MRI: elbow Comments Left elbow x-ray viewed by me and report reviewed. See report below: NAME: [facility] REC#: [id number] PT STATUS: REG ER : 1950 PHYSICIAN: IJEOMA VÁZQUEZ MD ADMIT DATE: 03/24/18/ER Draft Date of Exam:03/24/18 ELBOW, LEFT, 3 VIEWS INDICATION: Left elbow pain post injury AP, oblique, and lateral views of the left elbow are obtained. No fracture or acute bony abnormality is seen. Joint spaces are unremarkable. IMPRESSION: Negative left elbow. Dictated on workstation # [id number] Dict: 03/24/18717 Trans: 03/24/1820 [facility] [id number] Interpreted by: JAGUAR OLEARY MD Diagonstic Imaging: CT Plain Films/CT/US/NM/MRI: facial bones, c-spine, head Comments CT viewed by me and report reviewed. Discussed with both the local radiologist and the [facility] radiologist. Interpretation was limited by motion artifact. No acute fractures or intracranial injuries identified. NAME: [facility] REC#: [id number] PT STATUS: REG ER : 1950 PHYSICIAN: IJEOMA VÁZQUEZ MD ADMIT DATE: 03/24/18/ER Draft Date of Exam:03/24/18 CT HEAD/FACE/CERVICAL WO INDICATION: Fall with head, neck and facial pain CT brain findings: Noncontrast brain CT is performed. There are mild diffuse atrophic changes. There are no extra-axial fluid collections. No intracranial hemorrhage. No intracranial mass or mass effect. There are low-density changes in the deep white matter compatible with chronic ischemic change. There is no acute appearing intracranial finding. Calvarial windows show no calvarial fracture. CT cervical spine findings: Axial slices are obtained with sagittal and coronal reconstructions without contrast. There is no acute cervical spine fracture. The cervical vertebrae are normal in height and alignment with no subluxation. There is diffuse facet degenerative change throughout the cervical region. There is disc space narrowing and osteophyte formation most prominent at C5-6 and C6-7. CT facial bones findings: Axial slices are obtained with sagittal and coronal reconstructions without contrast. There is a left periorbital subcutaneous hematoma. There is no intraorbital hematoma. The globes and optic nerves and extraocular muscles appear symmetric. The sinuses appear well aerated. No acute facial fracture is seen. IMPRESSION: CT brain shows chronic changes as described above with no acute intracranial abnormality or calvarial fracture. CT cervical spine demonstrates degenerative findings as described above with no acute fracture or subluxation. CT maxillofacial demonstrates a left periorbital subcutaneous hematoma. There is no acute facial fracture. Dictated on workstation # [id number] Dict: 03/24/18728 Trans: 03/24/18 0740 [facility] [id number] Interpreted by: JAGUAR OLEARY MD Departure Impression Primary Impression: Facial contusion Qualified Codes: S00.83XA - Contusion of other part of head, initial encounter Additional Impressions: Fall from bed Qualified Codes: W06.XXXA - Fall from bed, initial encounter COPD exacerbation Skin tear of left elbow without complication Qualified Codes: S51.012A - Laceration without foreign body of left elbow, initial encounter Abrasion of right elbow Qualified Codes: S50.311A - Abrasion of right elbow, initial encounter Disposition: 01 HOME, SELF-CARE Condition: Improved Departure-Patient Inst. Decision time for Depature: 10:00 Referrals: ZAMZAM HOBSON MD (PCP/Family) Primary Care Physician Patient Instructions: Contusion (DC), SKIN AVULSION Add. Discharge Instructions: Keep your wounds clean and dry except for normal showering. Avoid submerging the skin tear on your left elbow until it is healed. You may trim loose edges of Steri-Strips off with the scissors provided that do not attempt to pull them off. Change your dressing out daily or more often if soiled until wound dries up and scabs over. Monitor for signs of infection such as increasing redness, increasing swelling, increasing pain, puslike drainage, or fever over 100. Expected the bruising on your face to spread in a dramatic fashion. It may even spread to your neck and upper chest. Return to care if you have worsening symptoms or develop new symptoms. Please walk with great care and use a walker if necessary. Follow-up with your primary care provider soon as possible. If you have any problems with vision of your left eye or worsening pain, please return to the ER or see your eye care provider. All discharge instructions reviewed with patient and/or family. Voiced understanding. Copy Copies To 1: ZAMZAM HOBSON MD, JOSHUA T MD Mar 24, 2018 06:28
[2018-03-24 06:47] LABS: ALANINE AMINOTRANSFERASE 18 U/L (0-55); ALBUMIN 4.2 GM/DL (3.2-4.5); ALKALINE PHOSPHATASE 72 U/L (40-136); BILIRUBIN,TOTAL 0.4 MG/DL (0.1-1.0); BUN/CREATININE RATIO 26; CALCIUM 9.6 MG/DL (8.5-10.1); CARBON DIOXIDE 26 MMOL/L (21-32); CHLORIDE 101 MMOL/L (98-107); CREATININE SERUM 0.88 MG/DL (0.60-1.30); GFR ESTIMATED > 60; GLUCOSE 209 MG/DL (70-105); MAGNESIUM 2.2 MG/DL (1.8-2.4); SODIUM 141 MMOL/L (135-145); TOTAL PROTEIN 7.2 GM/DL (6.4-8.2)
--- NOTE | 2018-03-24 07:20 | Diagnostic Imaging Report ---
INDICATION: Left elbow pain post injury AP, oblique, and lateral views of the left elbow are obtained. No fracture or acute bony abnormality is seen. Joint spaces are unremarkable. IMPRESSION: Negative left elbow. Dictated by: Dictated on workstation # [id number]
--- NOTE | 2018-03-24 07:22 | Diagnostic Imaging Report ---
INDICATION: Fall with pelvic pain AP pelvis and AP and oblique views of the left hip are obtained. No fracture or acute bony abnormality is seen. Hip joint spaces appear symmetric. IMPRESSION: Negative pelvis and left hip. Dictated by: Dictated on workstation # [id number]
--- NOTE | 2018-03-24 07:25 | Diagnostic Imaging Report ---
INDICATION: Fall with chest discomfort. Frontal chest obtained at 7:24 a.m. is compared with 11/05/2016. FINDINGS: There is marked cardiomegaly. There is chronic central vascular prominence which appears similar to the prior study. There is no new infiltrate or pneumothorax or pleural fluid. IMPRESSION: Prominent cardiomegaly and chronic central vascular prominence without change from 11/05/16. No pneumothorax or pleural fluid or acute finding. Dictated by: Dictated on workstation # [id number]
[2018-03-24] MEDS: TETANUS,DIPTH,PERTUSS P/F (BOOSTRIX) 0.5 ML VIAL IM ONE (07:27)
--- NOTE | 2018-03-24 07:40 | Diagnostic Imaging Report ---
INDICATION: Fall with head, neck and facial pain CT brain findings: Noncontrast brain CT is performed. There are mild diffuse atrophic changes. There are no extra-axial fluid collections. No intracranial hemorrhage. No intracranial mass or mass effect. There are low-density changes in the deep white matter compatible with chronic ischemic change. There is no acute appearing intracranial finding. Calvarial windows show no calvarial fracture. CT cervical spine findings: Axial slices are obtained with sagittal and coronal reconstructions without contrast. There is no acute cervical spine fracture. The cervical vertebrae are normal in height and alignment with no subluxation. There is diffuse facet degenerative change throughout the cervical region. There is disc space narrowing and osteophyte formation most prominent at C5-6 and C6-7. CT facial bones findings: Axial slices are obtained with sagittal and coronal reconstructions without contrast. There is a left periorbital subcutaneous hematoma. There is no intraorbital hematoma. The globes and optic nerves and extraocular muscles appear symmetric. The sinuses appear well aerated. No acute facial fracture is seen. IMPRESSION: CT brain shows chronic changes as described above with no acute intracranial abnormality or calvarial fracture. CT cervical spine demonstrates degenerative findings as described above with no acute fracture or subluxation. CT maxillofacial demonstrates a left periorbital subcutaneous hematoma. There is no acute facial fracture. Dictated by: Dictated on workstation # [id number]
[2018-03-24 08:07] VITALS: BP 137/88
[2018-03-24 08:11] LABS: BILIRUBIN,URINE NEGATIVE (NEGATIVE); CLARITY,URINE CLEAR; COLOR,URINE YELLOW; GLUCOSE, URINE (UA) NEGATIVE (NEGATIVE); KETONES,URINE NEGATIVE (NEGATIVE); LEUKOCYTE ESTERASE ,URINE 1+ (NEGATIVE); NITRITE,URINE NEGATIVE (NEGATIVE); PH,URINE 5 (5-9); PROTEIN,URINE 2+ (NEGATIVE); UROBILINOGEN,URINE NORMAL (NORMAL)
[2018-03-24 08:19] LABS: BACTERIA,URINE NEGATIVE /HPF; SQUAMOUS EPITHELIAL CELL,UR RARE /HPF; WBC,URINE 0-2 /HPF
[2018-03-24 10:35] VITALS: BP 120/80
== END 2018-03-24 10:43 | disposition home or self-care (01) ==
LOC: EDUNIT# 06:01 → ER 06:02
DX: S51.021A Laceration with foreign body of right elbow, initial encounter (principal); S00.83XA Contusion of other part of head, initial encounter; S50.311A Abrasion of right elbow, initial encounter; J44.1 Chronic obstructive pulmonary disease with (acute) exacerbation; R40.2142 Coma scale, eyes open, spontaneous, at arrival to emergency department; R40.2252 Coma scale, best verbal response, oriented, at arrival to emergency department; R40.2362 Coma scale, best motor response, obeys commands, at arrival to emergency department; G47.30 Sleep apnea, unspecified; E78.00 Pure hypercholesterolemia, unspecified; I10 Essential (primary) hypertension; K21.9 Gastro-esophageal reflux disease without esophagitis; E11.9 Type 2 diabetes mellitus without complications; Z90.710 Acquired absence of both cervix and uterus; Z79.82 Long term (current) use of aspirin; Z79.4 Long term (current) use of insulin; Z79.51 Long term (current) use of inhaled steroids; Z87.59 Personal history of other complications of pregnancy, childbirth and the puerperium; Z23 Encounter for immunization; Z90.89 Acquired absence of other organs; Z88.0 Allergy status to penicillin; Z88.8 Allergy status to other drugs, medicaments and biological substances; Z99.81 Dependence on supplemental oxygen; W06.XXXA Fall from bed, initial encounter; W22.09XA Striking against other stationary object, initial encounter
CPT/HCPCS: 12002; 36415; 70450; 70486; 71045; 72125; 73080; 80053; 81000; 82962; 83735; 84484; 85025; 90471; 90715; 93005; 93041; 94640; 96360

== ENCOUNTER → 2018-05-23 | Outpatient (CLI) | payer MEDICARE, MEDICAID ==
--- NOTE | 2018-05-23 15:39 | Diagnostic Imaging Report ---
EXAM: CT CHEST SCREENING WO INDICATION: 140 pack year smoking history. Quit smoking 13 years ago. COMPARISON: Screening low-dose chest CT without contrast 04/26/2017. FINDINGS: Advanced centrilobular emphysema. Interval resolution of the consolidation in the right lateral lung base. No new suspicious pulmonary nodule or mass. No endobronchial lesions. No pleural effusion or pneumothorax. Normal heart size. No pericardial effusion. No mediastinal, hilar or axillary lymphadenopathy. Mild atherosclerotic calcifications including coronary and aortic. Prominent caliber main pulmonary arteries. The visualized upper abdominal contents are unremarkable. No acute osseous findings. Stable compression deformity of the T10 vertebral body. IMPRESSION: 1. No new suspicious pulmonary nodule or mass. Interval resolution of the consolidation previously seen in the right lateral lung base. Recommend continued annual screening with low dose chest CT in 12 months. 2. Advanced centrilobular emphysema. 3. Prominent main central pulmonary arteries may represent a degree of pulmonary hypertension. 4. Mild atherosclerotic calcifications including coronary. LungRads category 1. MODIFIER: S. Please note that the low-dose technique of this chest CT is of non-diagnostic quality. This study is only intended for lung cancer screening of high risk patients. Dictated by: Dictated on workstation # [id number]
== END ==
LOC: RAD 12:45
PROVIDERS: ATTEND Internal Medicine Critical Care Medicine
DX: Z12.2 Encounter for screening for malignant neoplasm of respiratory organs (principal); J43.2 Centrilobular emphysema; I25.10 Atherosclerotic heart disease of native coronary artery without angina pectoris; Z87.891 Personal history of nicotine dependence

== ENCOUNTER → 2018-08-16 | Outpatient (CLI) | payer MEDICARE, MEDICAID ==
[~2018-08-16] MED LIST changes: -AMLO5TAB7 PO; +AMLO5TAB9 PO
[2018-08-16 10:39] LABS: ABG BASE EXCESS 8.7 MMOL/L (-2.5-2.5); ABG OXYGEN SATURATION 90 % (94-100); ABG PCO2 55 MMHG (35-45); ABG PO2 53 MMHG (79-93); ABG TCO2 35.4 MMOL/L (21.0-31.0); ALLENS TEST YES-POS; INSPIRED O2 RA; VENTILATOR NO
== END ==
LOC: LAB 10:12
PROVIDERS: ATTEND Nurse Practitioner Family
DX: J96.90 Respiratory failure, unspecified, unspecified whether with hypoxia or hypercapnia (principal); I27.0 Primary pulmonary hypertension; G47.33 Obstructive sleep apnea (adult) (pediatric); K21.9 Gastro-esophageal reflux disease without esophagitis; J44.9 Chronic obstructive pulmonary disease, unspecified; F41.9 Anxiety disorder, unspecified; Z72.0 Tobacco use
CPT/HCPCS: 36600; 82805

== ENCOUNTER → 2018-09-12 | Outpatient (CLI) | payer MEDICARE, MEDICAID ==
[~2018-09-12] MED LIST changes: -ACET-1742; -ACET600C5 PO; -ACHD5005 PO; -ADV1DS; -ALBU8.5H2 IH; -AML5T PO; -AMLO5TAB9 PO; -ASCO10006 PO; -ASPI-892 PO; -AZIT250T81 PO; -BUDE6HFA IH; -C250T PO; -CYCL5TAB11 PO; -DOCU100C37 PO; -E400C; -ENAL20TA PO; -ESCI20TA45 PO; -ESCT10T PO; -FLUT12AE4 IH; -FLUT1DIS26; -FRS325T; -GFN600TCR PO; -GLMP4T; -GUAI-509 PO; -HYDR-2890 PO; -HYDR-3820 PO; -IBUP-15; -INSU100V5 SQ; -LAXATIVE; -LEVO1CAP3 PO; -LSRT50T; -MELO7.5T PO; -METF-397 PO; -MIRA25TA PO; -MNTL10T PO; -MONT10TA24 PO; -MTF500T PO; -NITR-65 PO; -OLME20TA21 PO; -PANT40TA3 PO; -PNT40TEC PO; -PREG75CA PO; -ROFL500T3 PO; +RT-ALBUTEROL SULF 2.5 MG/3 ML PRE-MIX VIAL INH ONE; -SANCTURA; -SIMV20TA3 PO; -SOLI5TAB4 PO; -SPRN25T; -STOOL SOFTNER; -SULF-222 PO; -TIOT18CA; -TIOT18CA IH; -TIOT18CA2 IH; -TYLENOL ARTHRITIS; -VESICARE 5MG; -[UNRECOGNIZED DRUG - OTHER]; -[UNRECOGNIZED DRUG - OTHER]; -[UNRECOGNIZED DRUG - REMARK]
== END ==
LOC: RT 09:16
PROVIDERS: ATTEND Nurse Practitioner Family
DX: J96.20 Acute and chronic respiratory failure, unspecified whether with hypoxia or hypercapnia (principal); J44.9 Chronic obstructive pulmonary disease, unspecified; I27.20 Pulmonary hypertension, unspecified; G47.30 Sleep apnea, unspecified; K21.9 Gastro-esophageal reflux disease without esophagitis; F41.9 Anxiety disorder, unspecified; Z72.0 Tobacco use
CPT/HCPCS: 94060; 94726; 94729

== ENCOUNTER → 2019-03-24 | Outpatient (CLI) | payer MEDICARE, MEDICAID ==
[~2019-03-24] MED LIST changes: +ACET-1742; +ACET600C5 PO; +ACHD5005 PO; +ADV1DS; +ALBU8.5H2 IH; +AML5T PO; +AMLO5TAB9 PO; +ASCO10006 PO; +ASPI-892 PO; +AZIT250T81 PO; +BUDE6HFA IH; +C250T PO; +CYCL5TAB11 PO; +DOCU100C37 PO; +E400C; +ENAL20TA PO; +ESCI20TA45 PO; +ESCT10T PO; +FLUT12AE4 IH; +FLUT1DIS26; +FRS325T; +GFN600TCR PO; +GLMP4T; +GUAI-509 PO; +HYDR-2890 PO; +HYDR-3820 PO; +IBUP-15; +INSU100V5 SQ; +LAXATIVE; +LEVO1CAP3 PO; +LSRT50T; +MELO7.5T PO; +METF-397 PO; +MIRA25TA PO; +MNTL10T PO; +MONT10TA24 PO; +MTF500T PO; +NITR-65 PO; +OLME20TA21 PO; +PANT40TA3 PO; +PNT40TEC PO; +PREG75CA PO; +ROFL500T3 PO; -RT-ALBUTEROL SULF 2.5 MG/3 ML PRE-MIX VIAL INH ONE; +SANCTURA; +SIMV20TA3 PO; +SOLI5TAB4 PO; +SPRN25T; +STOOL SOFTNER; +SULF-222 PO; +TIOT18CA; +TIOT18CA IH; +TIOT18CA2 IH; +TYLENOL ARTHRITIS; +VESICARE 5MG; +[UNRECOGNIZED DRUG - OTHER]; +[UNRECOGNIZED DRUG - OTHER]; +[UNRECOGNIZED DRUG - REMARK]
[2019-03-24 09:22] LABS: ALANINE AMINOTRANSFERASE 6 U/L (0-55); ALBUMIN 4.1 GM/DL (3.2-4.5); ALKALINE PHOSPHATASE 82 U/L (40-136); BILIRUBIN,TOTAL 0.3 MG/DL (0.1-1.0); BUN/CREATININE RATIO 21; CALCIUM 9.3 MG/DL (8.5-10.1); CARBON DIOXIDE 30 MMOL/L (21-32); CHLORIDE 101 MMOL/L (98-107); CHOLESTEROL 109 MG/DL (< 200); CREATININE SERUM 0.75 MG/DL (0.60-1.30); GFR ESTIMATED > 60; GLUCOSE 138 MG/DL (70-105); HDL CHOLESTEROL 39 MG/DL (40-60); POTASSIUM 4.2 MMOL/L (3.6-5.0); SODIUM 142 MMOL/L (135-145); TOTAL PROTEIN 7.4 GM/DL (6.4-8.2); TRIGLYCERIDES 84 MG/DL (<150); VLDL CHOLESTEROL 17 MG/DL (5-40)
== END ==
LOC: LAB 08:48
PROVIDERS: ATTEND Nurse Practitioner Family
DX: E78.5 Hyperlipidemia, unspecified (principal); I10 Essential (primary) hypertension; I42.8 Other cardiomyopathies; I27.20 Pulmonary hypertension, unspecified; I65.29 Occlusion and stenosis of unspecified carotid artery; I35.0 Nonrheumatic aortic (valve) stenosis
CPT/HCPCS: 36415; 80053; 80061

== ENCOUNTER 2019-04-12 08:35 | Outpatient (RCR) | payer MEDICARE, MEDICAID ==
--- NOTE | 2019-04-12 10:08 | Diagnostic Imaging Report ---
PROCEDURE: CT chest without contrast. TECHNIQUE: Multiple contiguous axial images were obtained through the chest without the use of intravenous contrast. Auto Exposure Controls were utilized during the CT exam to meet ALARA standards for radiation dose reduction. INDICATION: Sleep apnea. Correlation is made with prior CT chest from 05/23/2018. FINDINGS: No axillary lymphadenopathy is identified. Hilar and mediastinal evaluation is limited without intravenous contrast but no significant abnormality is identified. There are coronary arterial calcifications present. Pulmonary arteries are dilated, visualized on prior exam, again likely owing to a component of pulmonary arterial hypertension. No pericardial or pleural fluid is identified. Pulmonary parenchymal evaluation does show some mild centrilobular emphysematous changes. There is an area of atelectasis or scarring in the lingula as well as the left lower lobe. No parenchymal infiltrate, nodule or mass is identified. The upper abdomen is unremarkable. No adrenal mass is detected. The bony structures are nonacute. IMPRESSION: Overall stable CT of the chest when compared with prior exam from 05/23/2018. No pulmonary infiltrate, nodule or mass is identified. No thoracic lymphadenopathy is seen. The pulmonary arterial dilatation is again noted suggestive of pulmonary hypertension. Dictated by: Dictated on workstation # [id number]
[2019-04-20 09:30] VITALS: BP 160/60
[2019-04-20 10:45] VITALS: BP 153/60
[2019-04-25 09:30] VITALS: BP 118/60
[2019-04-25 10:30] VITALS: BP 104/62
[2019-04-27 09:30] VITALS: BP 124/64
[2019-04-27 10:45] VITALS: BP 118/64
[2019-05-02 09:30] VITALS: BP 118/50
[2019-05-02 10:28] VITALS: BP 140/60
[2019-05-16 09:20] VITALS: BP 120/40
[2019-05-16 10:05] VITALS: BP 138/50
[2019-05-18 10:20] VITALS: BP_SYST 118; BP_DIAS 50; BP_DIAS 58
== END 2019-07-11 | disposition home or self-care (01) ==
LOC: RT 08:35
PROVIDERS: ATTEND Nurse Practitioner Family
DX: J44.9 Chronic obstructive pulmonary disease, unspecified (principal); J96.20 Acute and chronic respiratory failure, unspecified whether with hypoxia or hypercapnia; I28.8 Other diseases of pulmonary vessels; G47.30 Sleep apnea, unspecified
CPT/HCPCS: 71250; 99211